=== PATIENT | female | born 1995 | race Caucasian/White ===

== ENCOUNTER 2020-02-12 14:35 | Outpatient (CLI) | payer OTHER, SELFPAY ==
--- NOTE | ~2020-02-12 | XR_ITS ---
EXAMINATION: XR chest 2V DATE: 02/12/2020 15:34 INDICATION: Generalized chest pain. TECHNIQUE: Frontal and lateral views of the chest were obtained. COMPARISON: None. FINDINGS: The chest demonstrates clear lungs without pneumonia, pleural effusion, or pneumothorax. Th e heart size is normal. IMPRESSION: 1. No acute cardiopulmonary disease. Reviewed, dictated and finalized at location A.
[2020-02-12 14:55] LABS: Basophils Absolute Auto 0.05 K/mm3 (0.00-0.10); Basophils Percent Auto 0.9 % (0.0-1.0); Eosinophils Absolute Auto 0.08 K/mm3 (0.02-0.50); Eosinophils Percent Auto 1.4 % (1.0-6.0); Hematocrit 40.8 % (35.0-49.0); Hemoglobin 12.7 g/dL (12.0-15.0); Immature Granulocyte Absolute 0.01 K/mm3 (0.00-0.00); Immature Granulocyte Percent A 0.2 % (0.0-0.0); Lymphocytes Absolute Auto 1.82 K/mm3 (1.10-4.50); Lymphocytes Percent Auto 32.4 % (18.0-42.0); Mean Corpuscular HGB Conc 31.1 g/dL (32.0-36.0); Mean Corpuscular Hemoglobin 24.2 pg (27.0-31.0); Mean Corpuscular Volume 77.9 fL (78.0-102.0); Mean Platelet Volume 10.8 fl (9.2-11.8); Monocytes Absolute Auto 0.36 K/mm3 (0.10-0.90); Monocytes Percent Auto 6.4 % (2.0-11.0); Neutrophils Absolute Auto 3.3 K/mm3 (1.7-7.2); Neutrophils Percent Auto 58.7 % (50.0-70.0); Platelet Count Result 284 K/mm3 (150-420); Red Blood Count 5.24 M/mm3 (4.20-5.40); Red Cell Distribution Width 14.2 % (11.6-14.4); White Blood Count 5.6 K/mm3 (4.8-10.8)
[2020-02-12 15:45] LABS: Anion Gap 14.4 mmol/L (7-16); Blood Urea Nitrogen 10 mg/dL (7-18); Calcium 9.5 mg/dL (8.5-10.1); Carbon Dioxide 26 mmol/L (21-32); Chloride 102 mmol/L (98-108); Estimated Glomerular Filt Rate > 60; Glucose 84 mg/dL (70-99); Osmolality Calculated 284 mOsm/kg (285-295); Potassium 4.4 mmol/L (3.5-5.1); Sodium 138 mmol/L (136-145)
== END 2020-02-12 14:36 | disposition home or self-care (01) ==
LOC: CHSLAB 14:41
PROVIDERS: PCP Family Medicine; Visit Provider Family Medicine
DX: R07.89 Other chest pain (principal); J02.9 Acute pharyngitis, unspecified
CPT/HCPCS: 36415; 71046; 80048; 85025

== ENCOUNTER 2021-06-20 13:51 | Outpatient (CLI) | payer OTHER, SELFPAY ==
--- NOTE | ~2021-06-20 | US_ITS ---
EXAMINATION: US OB <=14 wk fetus w TV DATE: 06/20/2021 14:33 INDICATION: Encounter for supervision of normal during first trimester TECHNIQUE: Real-time pelvic ultrasound utilizing both a transvaginal and transabdominal probe was pe rformed. The interpreting radiologist was not present for the study. COMPARISON: None. FINDINGS: The uterus measures 7.8 x 4.5 x 6.5 cm. Endometrial complex is thickened at the fundus measuring up t o 2.6 cm in thickness. No evident intrauterine fluid or gestational sac. The right ovary measures 3.8 x 2.6 x 2.5 cm. 1.3 cm simple appearing anechoic cyst versus follicle in the right ovary. The left ovary is not visualized. There is a very small amount of simple appearing anechoic free fluid in the pelvis. IMPRESSION: 1. Thickened endometrial complex but without evident intrauterine gestational sac. Differential would include early , failed or nonvisualized ectopic . Recommend follow-up wi th serial beta-hCG levels with repeat imaging as clinically indicated. Reviewed, dictated and finalized at location A. NG MECHANIC IMPRESSION: 1. Thickened endometrial complex but without evident intrauterine gestational s ac. Differential would include early , failed or nonvisualiz ed ectopic . Recommend follow-up with serial beta-hCG levels with repe at imaging as clinically indicated.
== END 2021-06-20 13:52 | disposition home or self-care (01) ==
PROVIDERS: PCP Family Medicine; Visit Provider Family Medicine
DX: R10.2 Pelvic and perineal pain (principal); Z34.90 Encounter for supervision of normal pregnancy, unspecified, unspecified trimester
CPT/HCPCS: 76801; 76817

== ENCOUNTER 2021-06-21 12:56 | Outpatient (CLI) | payer OTHER, SELFPAY ==
[2021-06-21 13:46] LABS: SPREG INTERNAL CONTROL Positive; Serum Qual hCG Positive
== END 2021-06-21 12:57 | disposition home or self-care (01) ==
LOC: CHSLAB 13:02
PROVIDERS: PCP Family Medicine; Visit Provider Family Medicine
DX: Z34.90 Encounter for supervision of normal pregnancy, unspecified, unspecified trimester (principal)
CPT/HCPCS: 36415; 84702; 84703

== ENCOUNTER 2021-06-24 10:52 | Emergency (ER) | payer OTHER, SELFPAY ==
[2021-06-24 11:00] VITALS: BP 142/88; PULSE 102; RESP 16; TEMP 36.8; O2SAT 100
--- NOTE | 2021-06-24 11:07 | ED.NEUROSD ---
HPI - Neuro Symptoms/Deficit General Chief Complaint: Neuro Symptoms/Deficit Stated Complaint: issues Source: patient and RN notes reviewed Mode of arrival: ambulatory Limitations: no limitations History of Present Illness HPI Narrative: patient began having some tingling of the left leg last evening. Then today felt some in her left arm and left leg again. That has since resolved except for 1 area in her left groin. She had an ultrasound 3 days ago for positive test which could not locate products of conception and could not rule out an ectopic . Quantitative beta hCG shows she is approximately 4-5 weeks . She is not having any abdominal pain. She has no other symptoms. She said that she is concerned about having a blood clot because she is . Onset (ago): day(s) (1) Location: left arm and left leg History of same: No Severity: mild Quality: tingling Relieving factors: none Exacerbating factors: none Context: gradual onset On Anticoagulants: No Associated symptoms: denies other symptoms Treatments Prior to Arrival: none Related Data Home Medications Medication Instructions Recorded Confirmed [id number]-FA 1 tablet PO DAILY 06/24/21 06/24/21 [] Allergies Allergy/AdvReac Type Severity Reaction Status Date / Time cephalexin [From Keflex] Allergy Rash Verified 06/24/21 11:33 Review of Systems Review of Systems: All systems reviewed & are unremarkable except as noted in HPI and below Constitutional: Constitutional: Denies body ache(s), Denies chills and Denies headache(s) Neurologic: Reports Normal hearing present, Denies abnormal gait, Denies confusion, Denies dizziness, Denies syncope, Denies headache(s), Denies lack of coordination, Denies loss of vision, Denies memory loss, Denies numbness and Denies disequilibrium PMFSH Past Medical History Medical History (Updated 06/24/21 @ 12:28 by Mason Coreas MD) COVID-19 No active medical problems Surgical History Surgical History (Updated 06/24/21 @ 11:13 by Mason Coreas MD) No pertinent past surgical history Social History Social History (Updated 06/24/21 @ 11:14 by Mason Coreas MD) Smoking status: Never smoker Exam Const: General: cooperative, healthy appearing, comfortable, no acute distress, well developed, alert and awake Nutritional Appearance: average body habitus and well nourished Orientation/consciousness: patient oriented x3 Limitations: no limitations Other: female nurse in room during examination. HENMT: Head: normal to inspection, normocephalic and atraumatic Ears: hearing grossly normal bilaterally and external ears normal Eyes: General: appearance normal, both eyes and all related structures Periorbital: periorbital findings normal Pupils: Equal, round and reactive pupils present EOM: EOMs intact bilaterally Neck: Neck: normal visual inspection, full ROM, trachea midline and supple Resp: Effort & Inspection: normal respiratory effort Auscultation: clear to auscultation bilaterally Cardio: Jugular venous distension: no JVD Rate: regular rate Rhythm: regular rhythm Heart sounds: no murmurs GI: Inspection: normal to inspection Auscultation: normal bowel sounds Back/Spine/Pelvis: Back: no CVA tenderness Cervical Spine: cervical ROM normal Thoracic/Lumbar Spine: thoraco-lumbar ROM normal Skin: General skin exam: normal color, no rashes or lesions noted and turgor normal Rashes: no rashes Neuro: General: patient oriented x3, gait normal, moves all extremities, no meningeal signs and no focal motor deficits Cranial nerves: Yes CN's II-XII intact bilaterally Speech: normal speech Gait exam (Neuro): Normal gait present Motor exam (neuro): 5/5 motor strength present throughout, Pronator motor function not present, No tremor noted and No asterixis Sensory Exam: normal sensation Coordination: [id number]-ax-curb test normal, wsli-vo-ommi test normal, t
[2021-06-24 11:57] LABS: Basophils Absolute Auto 0.03 K/mm3 (0.00-0.10); Basophils Percent Auto 0.5 % (0.0-1.0); Eosinophils Percent Auto 1.6 % (1.0-6.0); Hematocrit 39.9 % (35.0-49.0); Hemoglobin 12.9 g/dL (12.0-15.0); Immature Granulocyte Absolute 0.02 K/mm3 (0.00-0.00); Immature Granulocyte Percent A 0.3 % (0.0-0.0); Lymphocytes Percent Auto 22.2 % (18.0-42.0); Mean Corpuscular HGB Conc 32.3 g/dL (32.0-36.0); Mean Corpuscular Hemoglobin 27.3 pg (27.0-31.0); Mean Corpuscular Volume 84.4 fL (78.0-102.0); Mean Platelet Volume 10.7 fl (9.2-11.8); Monocytes Absolute Auto 0.46 K/mm3 (0.10-0.90); Monocytes Percent Auto 7.3 % (2.0-11.0); Neutrophils Absolute Auto 4.3 K/mm3 (1.7-7.2); Neutrophils Percent Auto 68.1 % (50.0-70.0); Platelet Count Result 234 K/mm3 (150-420); Red Blood Count 4.73 M/mm3 (4.20-5.40); Red Cell Distribution Width 14.4 % (11.6-14.4); White Blood Count 6.3 K/mm3 (4.8-10.8)
[2021-06-24 12:08] LABS: D Dimer 0.35 mg/L (0.19-0.50)
[2021-06-24 12:21] LABS: Alanine Aminotransferase 17 U/L (14-59); Alkaline Phosphatase 66 U/L (46-116); Anion Gap 10 mmol/L (8-16); Aspartate Amino Transferase 10 U/L (15-37); Bilirubin,Total 0.3 mg/dL (0.00-1.00); Blood Urea Nitrogen 14 mg/dL (7-18); Calcium 8.9 mg/dL (8.5-10.1); Carbon Dioxide 24 mmol/L (21-32); Chloride 104 mmol/L (98-108); Estimated CRCL calculation 94 ml/min; Estimated Glomerular Filt Rate > 60; Glucose 93 mg/dL (70-99); Magnesium 2.2 mg/dL (1.8-2.4); Osmolality Calculated 286 mOsm/kg (285-295); Potassium 3.9 mmol/L (3.5-5.1); Sodium 138 mmol/L (136-145); Thyroid Stimulating Hormone 1.67 uIU/mL (0.36-3.74); Total Protein 7.5 g/dL (6.4-8.2)
== END 2021-06-24 12:30 | disposition home or self-care (01) ==
PROVIDERS: Emergency Provider Emergency Medicine; PCP Family Medicine
DX: R20.2 Paresthesia of skin (principal)
CPT/HCPCS: 36415; 80053; 83735; 84443; 85025; 85380; 99282; 99283

== ENCOUNTER 2021-06-27 12:27 | Outpatient (CLI) | payer OTHER, SELFPAY ==
[2021-06-27 13:06] LABS: Serum Qual hCG Positive
[2021-06-27 13:07] LABS: SPREG INTERNAL CONTROL Positive
== END 2021-06-27 12:28 | disposition home or self-care (01) ==
LOC: CHSLAB 12:29
PROVIDERS: PCP Family Medicine; Visit Provider Family Medicine
DX: Z34.90 Encounter for supervision of normal pregnancy, unspecified, unspecified trimester (principal)
CPT/HCPCS: 36415; 84702; 84703

== ENCOUNTER 2021-07-05 10:10 | Outpatient (CLI) | payer OTHER, SELFPAY ==
--- NOTE | ~2021-07-05 | US_ITS ---
EXAMINATION: US OB <= 14 weeks fetus DATE: 07/05/2021 11:11 INDICATION: Establish dating of during first trimester TECHNIQUE: Real-time pelvic ultrasound utilizing both a transvaginal and transabdominal probe was pe rformed. The interpreting radiologist was not present for the study. COMPARISON: 06/20/2021 FINDINGS: The uterus measures 10.2 x 4.8 x 6.1 cm. There is an intrauterine gestational sac. A yolk sac and fe jovani pole are identified. The crown rump length measures 1.8 cm, which correlates with an estimated ge stational age of 6 weeks and 4 days. heart motion is identified measuring 145 beats per minute (bpm) by M-mode Doppler. The right ovary measures 3.0 x 2.9 x 2.7 cm and contains a 2.1 cm hypoechoic likely corpus luteum cys t. The left ovary measures 2.0 x 1.6 x 1.7 cm. Vascular flow with both arterial and venous waveforms identified in both ovaries on color Doppler. There is no free fluid in the pelvis. IMPRESSION: 1. Single living fetus with heart rate of 145 bpm. 2. Gestational age by ultrasound of 6 weeks 4 day(s) +/- 4 day(s) with ultrasound estimated date of delivery (GLENDY) of 02/24/2022. Reviewed, dictated and finalized at location A. OR DIRECTOR INSIGHT IMPRESSION: 1. Single living fetus with heart rate of 145 bpm. 2. Gestational age by ultrasound of 6 weeks 4 day(s) +/- 4 day(s) with ultraso und estimated date of delivery (GLENDY) of 02/24/2022.
== END 2021-07-05 10:11 | disposition home or self-care (01) ==
LOC: CHSIMG 10:11
PROVIDERS: PCP Family Medicine; Visit Provider Family Medicine
DX: Z34.90 Encounter for supervision of normal pregnancy, unspecified, unspecified trimester (principal)
CPT/HCPCS: 76801

== ENCOUNTER 2021-12-14 17:41 | Outpatient (CLI) | payer OTHER, MEDICAID, SELFPAY ==
[2021-12-14] VITALS (9 sets, daily range): BP systolic 136–160; BP diastolic 83–93; PULSE 80–95
[2021-12-14 18:35] LABS: Basophils Absolute Auto 0.1 K/mm3 (0.0-0.1); Basophils Percent Auto 0.4 % (0.2-1.2); Eosinophils Absolute Auto 0.1 K/mm3 (0-0.3); Eosinophils Percent Auto 0.9 % (0-4.4); Hematocrit 30.6 % (37.0-47.0); Hemoglobin 9.7 g/dL (12.0-15.0); Immature Granulocyte Absolute 0.07 K/mm3 (0.00-0.031); Immature Granulocyte Percent A 0.5 % (0-0.5); Lymphocytes Absolute Auto 1.96 K/mm3 (0.9-3.2); Lymphocytes Percent Auto 14.6 % (18.3-44.2); Mean Corpuscular HGB Conc 31.7 g/dl (32-36); Mean Corpuscular Hemoglobin 27.4 pg (26-34); Mean Corpuscular Volume 86.4 fl (80-100); Mean Platelet Volume 11.9 fl (7.4-10.4); Monocytes Absolute Auto 0.9 K/mm3 (0.1-0.6); Monocytes Percent Auto 6.5 % (2.6-8.5); Neutrophils Absolute Auto 10.4 K/mm3 (1.3-6.7); Neutrophils Percent Auto 77.1 % (45.5-73.1); Nucleated Red Blood Cells Perc 0.1 % (0.0-0.2); Platelet Count Result 214 k/mm3 (150-375); Red Blood Count 3.54 M/mm3 (4.2-5.4); Red Cell Distribution Width 13.5 % (11.5-14.5); White Blood Count 13.4 K/mm3 (4.5-10.0)
[2021-12-14] MEDS: LABETALOL HCL 100 MG TABLET 200 MG PO (18:39)
[2021-12-14 18:46] LABS: Alanine Aminotransferase 12 U/L (6-35); Albumin Level 3.8 g/dL (3.5-5.1); Alkaline Phosphatase 142 U/L (38-126); Anion Gap 6 mmol/L (8-16); Aspartate Amino Transferase 23 U/L (14-36); Bilirubin,Total 0.1 mg/dL (0.2-1.3); Blood Urea Nitrogen 9 mg/dL (7-17); Calcium 8.9 mg/dL (8.4-10.2); Carbon Dioxide 21 mmol/L (22-30); Chloride 107 mmol/L (98-107); Estimated Glomerular Filt Rate > 60; Glucose 86 mg/dL (65-110); Potassium 3.5 mmol/L (3.4-5.0); Sodium 134 mmol/L (137-145); Uric Acid 3.6 mg/dL (2.5-7.5)
[2021-12-14 18:52] LABS: Appearance Urine Clear (Clear); Bilirubin Urine Negative (Negative); Blood Urine Trace-lysed (Negative); Color Urine Yellow (Yellow); Glucose Urine UA Negative (Negative); Ketones Urine Negative (Negative); Leukocyte Esterase Ur Negative LEU/UL (NEGATIVE); Nitrate Urine Negative (Negative); Protein Urine Negative (Negative); Urobilinogen Urine 0.2 mg/dL (<2.0)
[2021-12-14 18:57] LABS: Add Urine Microscopic? YES; Bacteria Urine Trace /hpf; RBC Urine 0-2 /hpf (0-2); Squamous Epithelial Cell Urine Moderate /hpf (Few); WBC Urine 0-3 /hpf (0-3)
[2021-12-14 19:17] LABS: Creatinine Urine 29.1 mg/dL; Total Protein Urine Random 17 mg/dL; Ur Ttl Prot Creatinine Ratio 0.58 mg/mg (0-0.20)
--- NOTE | 2021-12-14 19:30 | PC.NURSE ---
Called Kimmie Smyth CNMW- labs reviewed. BP's reviewed. order received. will monitor x 30 more minutes call with BP readings. send pt home with 24 urine collection supplies with instructions to bring back after collection. Rx for Labetalol 200mg BID #15 to be sent to pharmacy. pt to f/u in office this sundayDecember 16.
--- NOTE | 2021-12-14 20:02 | PC.NURSE ---
called Kimmie ARMSTRONGLuiza - tiffanieiwed BP's. order received to d/c pt home with instructions to f/u in office 12/16/2021.
== END 2021-12-14 20:15 | disposition home or self-care (01) ==
LOC: ANHOBOP 17:49 → ANHOBPP 17:50
PROVIDERS: PCP Family Medicine; Visit Provider Advanced Practice Midwife
DX: O13.3 Gestational [pregnancy-induced] hypertension without significant proteinuria, third trimester (principal); Z3A.29 29 weeks gestation of pregnancy; Z51.81 Encounter for therapeutic drug level monitoring; Z79.899 Other long term (current) drug therapy
CPT/HCPCS: 36415; 59025; 80053; 81001; 82570; 84156; 84550; 85025; 87086; 99199; A9270

== ENCOUNTER 2021-12-15 19:30 | Outpatient (NON) | payer OTHER, MEDICAID, SELFPAY ==
[2021-12-15 20:22] VITALS: BMI 26.6
[2021-12-15 20:43] LABS: Collection Time Urine 24 HOURS
[2021-12-15 20:48] LABS: Patient Weight 155 Lbs; Total Volume 24 Hour Urine 1900 ml
[2021-12-15 21:00] LABS: Creatinine Clearance Urine 161.5 ml/min (75-125); Creatinine Urine 61.9 mg/dL; Total Protein Urine 24 Hr 323 mg/24hr (28-141); Total Protein Urine Random 17 mg/dL
== END 2021-12-15 19:31 | disposition home or self-care (01) ==
LOC: ANHLAB 12-16 08:06
PROVIDERS: PCP Family Medicine; Visit Provider Advanced Practice Midwife
DX: I10 Essential (primary) hypertension (principal)
CPT/HCPCS: 81050; 82575; 84156

== ENCOUNTER 2021-12-26 17:28 | Outpatient (CLI) | payer OTHER, MEDICAID, SELFPAY ==
[2021-12-26] VITALS (10 sets, daily range): BP systolic 145–165; BP diastolic 85–101; PULSE 78–84
[2021-12-26] MEDS: NIFEdipine 30 MG TAB.ER.24 PO (18:04)
[2021-12-26] MEDS: BETAMETHASONE SOD PHOS/ACETATE 30 MG/5 ML VIAL 12 MG IM (18:07)
[2021-12-26 18:09] LABS: Basophils Percent Auto 0.4 % (0.2-1.2); Eosinophils Absolute Auto 0.1 K/mm3 (0-0.3); Eosinophils Percent Auto 1.2 % (0-4.4); Hemoglobin 9.9 g/dL (12.0-15.0); Immature Granulocyte Absolute 0.08 K/mm3 (0.00-0.031); Immature Granulocyte Percent A 0.7 % (0-0.5); Lymphocytes Absolute Auto 1.66 K/mm3 (0.9-3.2); Lymphocytes Percent Auto 15.5 % (18.3-44.2); Mean Corpuscular HGB Conc 31.9 g/dl (32-36); Mean Corpuscular Hemoglobin 27.1 pg (26-34); Mean Corpuscular Volume 84.9 fl (80-100); Mean Platelet Volume 11.4 fl (7.4-10.4); Monocytes Absolute Auto 0.7 K/mm3 (0.1-0.6); Monocytes Percent Auto 6.1 % (2.6-8.5); Neutrophils Absolute Auto 8.2 K/mm3 (1.3-6.7); Neutrophils Percent Auto 76.1 % (45.5-73.1); Platelet Count Result 240 k/mm3 (150-375); Red Blood Count 3.65 M/mm3 (4.2-5.4); Red Cell Distribution Width 15.8 % (11.5-14.5); White Blood Count 10.7 K/mm3 (4.5-10.0)
[2021-12-26 18:19] LABS: Alanine Aminotransferase 13 U/L (6-35); Albumin Level 3.5 g/dL (3.5-5.1); Alkaline Phosphatase 165 U/L (38-126); Anion Gap 5 mmol/L (8-16); Aspartate Amino Transferase 22 U/L (14-36); Bilirubin,Total < 0.1 mg/dL (0.2-1.3); Blood Urea Nitrogen 9 mg/dL (7-17); Calcium 8.7 mg/dL (8.4-10.2); Carbon Dioxide 21 mmol/L (22-30); Chloride 110 mmol/L (98-107); Estimated Glomerular Filt Rate > 60; Glucose 102 mg/dL (65-110); Potassium 3.7 mmol/L (3.4-5.0); Sodium 136 mmol/L (137-145); Uric Acid 4.7 mg/dL (2.5-7.5)
[2021-12-26 18:23] LABS: Creatinine Urine 34.8 mg/dL; Total Protein Urine Random 15 mg/dL; Ur Ttl Prot Creatinine Ratio 0.43 mg/mg (0-0.20)
[2021-12-26 18:32] LABS: Appearance Urine Clear (Clear); Bilirubin Urine Negative (Negative); Blood Urine Negative (Negative); Color Urine Yellow (Yellow); Glucose Urine UA Negative (Negative); Ketones Urine Negative (Negative); Leukocyte Esterase Ur Negative LEU/UL (NEGATIVE); Nitrate Urine Negative (Negative); Protein Urine Negative (Negative); Specific Grav Ur 1.015 (1.001-1.035); Urobilinogen Urine 0.2 mg/dL (<2.0)
[2021-12-26 18:33] LABS: Add Urine Microscopic? NO
--- NOTE | 2021-12-26 20:18 | PC.NURSE ---
1999- called Dr. Renae- labs reviewed, BP's reviewed, FHT reviewed. order received to D/C pt home on modified bedrest. pt to call office in AM to get Rx for procardia XL and to get letter for work. pt to return to L&D 12/27/21 for second celestone shot. pt agrees with plan. HTN handout given to pt.
== END 2021-12-26 20:18 | disposition home or self-care (01) ==
LOC: ANHOBOP 17:35 → ANHOBPP 01-03 06:15
PROVIDERS: PCP Family Medicine; Visit Provider Obstetrics & Gynecology
DX: O13.9 Gestational [pregnancy-induced] hypertension without significant proteinuria, unspecified trimester (principal); Z3A.00 Weeks of gestation of pregnancy not specified
CPT/HCPCS: 36415; 59025; 80053; 81003; 82570; 84156; 84550; 85025; 87086; 96372; 99199; A9270; J0702

== ENCOUNTER 2021-12-27 17:55 | Outpatient (CLI) | payer OTHER, MEDICAID, SELFPAY ==
[2021-12-27] MEDS: BETAMETHASONE SOD PHOS/ACETATE 30 MG/5 ML VIAL 12 MG IM (18:06)
== END 2021-12-27 17:56 | disposition home or self-care (01) ==
PROVIDERS: PCP Family Medicine; Visit Provider Obstetrics & Gynecology
DX: Z36.84 Encounter for antenatal screening for fetal lung maturity (principal)
CPT/HCPCS: 96372; J0702

== ENCOUNTER 2022-01-30 16:54 | Inpatient (IN) | payer MEDICAID, SELFPAY ==
[2022-01-30] VITALS (57 sets, daily range): BP systolic 130–159; BP diastolic 82–104; PULSE 72–97; RESP 18; TEMP 36.3–36.8; O2SAT 99–100; BMI 28.0
--- NOTE | 2022-01-30 17:51 | LDADM ---
This patient, Anali Rouse, was admitted to Labor/Delivery/Recovery 109 on 01/30/22 at 16:54. Plans for labor, pain management and were discussed with patient. Patient/family oriented to hospital policies and general routines including ID bracelet, bed and alarms, visiting hours, pain management, procedures, bathroom and other care routines, personal items, smoking policy, room service/diet and guest tray routines, security routines, and visiting hours. Patient/Family are encouraged to report perceived risks to care and to ask questions if they do not understand what they are told or what they should do. See OBIX for further documentation.
[2022-01-30 17:54] LABS: Basophils Percent Auto 0.4 % (0.2-1.2); Eosinophils Absolute Auto 0.1 K/mm3 (0-0.3); Eosinophils Percent Auto 0.8 % (0-4.4); Hematocrit 33.9 % (37.0-47.0); Hemoglobin 11.2 g/dL (12.0-15.0); Immature Granulocyte Absolute 0.08 K/mm3 (0.00-0.031); Immature Granulocyte Percent A 0.7 % (0-0.5); Lymphocytes Absolute Auto 1.62 K/mm3 (0.9-3.2); Mean Corpuscular Hemoglobin 28.5 pg (26-34); Mean Corpuscular Volume 86.3 fl (80-100); Mean Platelet Volume 12.1 fl (7.4-10.4); Monocytes Absolute Auto 0.6 K/mm3 (0.1-0.6); Monocytes Percent Auto 5.6 % (2.6-8.5); Neutrophils Absolute Auto 8.4 K/mm3 (1.3-6.7); Neutrophils Percent Auto 77.5 % (45.5-73.1); Platelet Count Result 209 k/mm3 (150-375); Red Blood Count 3.93 M/mm3 (4.2-5.4); Red Cell Distribution Width 17.9 % (11.5-14.5); White Blood Count 10.8 K/mm3 (4.5-10.0)
[2022-01-30 18:05] LABS: Alanine Aminotransferase 16 U/L (6-35); Albumin Level 3.8 g/dL (3.5-5.1); Alkaline Phosphatase 215 U/L (38-126); Anion Gap 8 mmol/L (8-16); Aspartate Amino Transferase 34 U/L (14-36); Bilirubin,Total 0.2 mg/dL (0.2-1.3); Blood Urea Nitrogen 13 mg/dL (7-17); Calcium 8.9 mg/dL (8.4-10.2); Carbon Dioxide 18 mmol/L (22-30); Chloride 108 mmol/L (98-107); Estimated CRCL calculation 121 ml/min; Estimated Glomerular Filt Rate > 60; Glucose 106 mg/dL (65-110); Potassium 3.9 mmol/L (3.4-5.0); Sodium 134 mmol/L (137-145)
[2022-01-30 18:07] LABS: Uric Acid 6.1 mg/dL (2.5-7.5)
[2022-01-30] MEDS: DINOPROSTONE 10 MG VAG INSERT VAGINAL (18:22)
[2022-01-30 18:57] LABS: Creatinine Urine 41.3 mg/dL; Total Protein Urine Random 20 mg/dL; Ur Ttl Prot Creatinine Ratio 0.48 mg/mg (0-0.20)
--- NOTE | 2022-01-30 19:10 | WPDANESEPP ---
Anes - Eval Pre Procedure Procedure: labor Epidural Date/Time: 01/30/22 19:10 Surgeon: anastasia Pre Op Diagnosis: MIL Patient Data Age: 26 Gender: F Height: 1.63 m Weight: 74 kg Last Vital Signs Temp 36.8 C 01/30/22 18:30 Pulse 80 01/30/22 19:00 BP 138/91 H 01/30/22 19:00 O2 Del Method Room Air 01/30/22 17:50 Allergies Allergy/AdvReac Type Severity Reaction Status Date / Time cephalexin [From Keflex] Allergy Rash Verified 01/30/22 18:00 Home Medications Medication Instructions Recorded Confirmed Type vit no.133-ferrous 1 tablet PO DAILY 06/24/21 01/30/22 History fumarate 28 mg-folic acid 800 mcg tablet () labetalol 200 mg tablet 300 mg PO Q12H HTN 12/26/21 01/30/22 History aspirin 81 mg tablet,delayed 81 mg PO DAILY 01/24/22 01/30/22 History release (Negrita Low Dose Aspirin) docusate sodium 100 mg capsule 100 mg PO DAILY 01/24/22 01/30/22 History (Colace) ferrous sulfate 200 mg (40 mg 200 mg PO DAILY 01/24/22 01/30/22 History iron) tablet nifedipine 30 mg tablet,extended 30 mg PO DAILY 01/24/22 01/30/22 History release 24 hr (Procardia XL) Laboratory Tests 01/30/22 01/30/22 01/30/22 17:44 17:44 17:44 WBC 10.8 K/mm3 H K/mm3 (4.5-10.0) RBC 3.93 M/mm3 L M/mm3 (4.2-5.4) Hgb 11.2 g/dL L g/dL (12.0-15.0) Hct 33.9 % L % (37.0-47.0) MCV 86.3 fl fl (80-100) MCH 28.5 pg pg (26-34) MCHC 33.0 g/dl g/dl (32-36) RDW 17.9 % H % (11.5-14.5) Plt Count 209 k/mm3 k/mm3 (150-375) MPV 12.1 fl H fl (7.4-10.4) Immature Gran % (Auto) 0.7 % H % (0-0.5) Neut % (Auto) 77.5 % H % (45.5-73.1) Lymph % (Auto) 15.0 % L % (18.3-44.2) Kingfisher % (Auto) 5.6 % % (2.6-8.5) Eos % (Auto) 0.8 % % (0-4.4) Baso % (Auto) 0.4 % % (0.2-1.2) Lymph # (Auto) 1.62 K/mm3 K/mm3 (0.9-3.2) [place]isher # (Auto) 0.6 K/mm3 K/mm3 (0.1-0.6) Eos # (Auto) 0.1 K/mm3 K/mm3 (0-0.3) Baso # (Auto) 0.0 K/mm3 K/mm3 (0.0-0.1) Abs Immat Gran (auto) 0.08 K/mm3 H K/mm3 (0.00-0.031) Absolute Neuts (auto) 8.4 K/mm3 H K/mm3 (1.3-6.7) Absolute Nucleated RBC 0.0 K/mm3 K/mm3 (0.0-0.012) Nucleated RBC % 0.0 % % (0.0-0.2) Sodium Potassium Chloride Carbon Dioxide Anion Gap BUN Creatinine Estim Creat Clear Calc Estimated GFR Glucose Uric Acid 6.1 mg/dL mg/dL (2.5-7.5) Calcium Total Bilirubin AST ALT Alkaline Phosphatase Total Protein Albumin U Random Total Protein Urine Creatinine Protein/Creat Ratio 2 RPR Pending 01/30/22 01/30/22 17:44 18:38 WBC RBC Hgb Hct MCV MCH MCHC RDW Plt Count MPV Immature Gran % (Auto) Neut % (Auto) Lymph % (Auto) Kingfisher % (Auto) Eos % (Auto) Baso % (Auto) Lymph # (Auto) Kingfisher # (Auto) Eos # (Auto) Baso # (Auto) Abs Immat Gran (auto) Absolute Neuts (auto) Absolute Nucleated RBC Nucleated RBC % Sodium 134 mmol/L L mmol/L (137-145) Potassium 3.9 mmol/L mmol/L (3.4-5.0) Chloride 108 mmol/L H mmol/L (98-107) Carbon Dioxide 18 mmol/L L mmol/L (22-30) Anion Gap 8 mmol/L mmol/L (8-16) BUN 13 mg/dL mg/dL (7-17) Creatinine 0.60 mg/dL L mg/dL (0.7-1.0) Estim Creat Clear Calc 121 ml/min ml/min Estimated GFR > 60 (59 - ) Glucose 106 mg/dL mg/dL (65-110) Ur
[2022-01-30] MEDS: NIFEdipine 30 MG TAB.ER.24 PO (20:23)
[2022-01-30] MEDS: LABETALOL HCL 100 MG TABLET 300 MG PO (20:23)
[2022-01-30] MEDS: LACTATED RINGERS 1,000 ML 75 ML IV CONT (22:04)
[2022-01-30] MEDS: MAGNESIUM SULF 4 GM/WATER100ML 4 GM/100 ML BAG IVPB (22:06)
[2022-01-30] MEDS: MAGNESIUM SULF 20GM/WATER500ML 500 ML 50 MG IV CONT (22:35)
[2022-01-31] VITALS (367 sets, daily range): BP systolic 110–152; BP diastolic 67–102; PULSE 69–108; RESP 18; TEMP 36.1–36.6; O2SAT 93–100
--- NOTE | 2022-01-31 06:37 | PM.IMHP ---
H&P: HPI History of Present Illness Date/Time: 01/31/22 06:37 Chief Complaint: induction of labor Narrative: Anali is a 26yo at 37.0 today who was sent over for IOL one day early for cHTN with superimposed preE. BPs in office yesterday 155/108 and 160/100, had some severe pressures last night as well. Magnesium and cervidil overnight. otherwise uncomplicated. Review of Systems Review of Systems: All systems reviewed & are unremarkable except as noted in HPI and below PMFSH Past Medical History Medical History COVID-19 No active medical problems Surgical History Surgical History No pertinent past surgical history Family History Family History Other No pertinent family history Social History Social History Smoking status: Never smoker Substance use: never Spiritual care concerns: No Meds Home Medications and Allergies Home Medications Medication Instructions Recorded Confirmed Type vit no.133-ferrous 1 tablet PO DAILY 06/24/21 01/30/22 History fumarate 28 mg-folic acid 800 mcg tablet () labetalol 200 mg tablet 300 mg PO Q12H HTN 12/26/21 01/30/22 History aspirin 81 mg tablet,delayed 81 mg PO DAILY 01/24/22 01/30/22 History release (Negrita Low Dose Aspirin) docusate sodium 100 mg capsule 100 mg PO DAILY 01/24/22 01/30/22 History (Colace) ferrous sulfate 200 mg (40 mg 200 mg PO DAILY 01/24/22 01/30/22 History iron) tablet nifedipine 30 mg tablet,extended 30 mg PO DAILY 01/24/22 01/30/22 History release 24 hr (Procardia XL) Allergies Allergy/AdvReac Type Severity Reaction Status Date / Time cephalexin [From Keflex] Allergy Rash Verified 01/30/22 18:00 Vital Signs Vital Signs - 24 hr 01/30/22 17:36 01/30/22 17:45 01/30/22 18:00 Temperature 97.3 F L Pulse Rate 96 97 88 Respiratory Rate Blood Pressure 147/104 H 149/98 H 151/96 H Pulse Oximetry Oxygen Delivery 01/30/22 18:31 01/30/22 18:30 01/30/22 18:45 Temperature 98.3 F Pulse Rate 78 79 Respiratory Rate Blood Pressure 153/98 H 138/92 H Pulse Oximetry Oxygen Delivery 01/30/22 19:00 01/30/22 19:15 01/30/22 19:30 Temperature Pulse Rate 80 79 75 Respiratory Rate Blood Pressure 138/91 H 147/94 H 145/90 H Pulse Oximetry Oxygen Delivery 01/30/22 19:45 01/30/22 20:00 01/30/22 20:15 Temperature Pulse Rate 90 88 91 Respiratory Rate Blood Pressure 148/92 H 146/92 H Pulse Oximetry Oxygen Delivery 01/30/22 20:30 01/30/22 20:45 01/30/22 21:00 Temperature Pulse Rate 81 89 91 Respiratory Rate Blood Pressure 149/104 H 142/100 H 159/104 H Pulse Oximetry Oxygen Delivery 01/30/22 21:15 01/30/22 21:30 01/30/22 21:45 Temperature Pulse Rate 81 84 85 Respiratory Rate Blood Pressure 155/93 H 132/85 147/91 H Pulse Oximetry Oxygen Delivery 01/30/22 22:00 01/30/22 22:10 01/30/22 22:11 Temperature 97.5 F L Pulse Rate 72 81 83 Respiratory Rate Blood Pressure 137/89 130/97 H 135/88 Pulse Oximetry Oxygen Delivery 01/30/22 22:15 01/30/22 22:19 01/30/22 22:20 Temperature Pulse Rate 86 82 Respiratory Rate Blood Pressure 130/82 132/83 Pulse Oximetry 100 Oxygen Delivery 01/30/22 22:24 01/30/22 22:25 01/30/22 22:29 Temperature Pulse Rate 89 Respiratory Rate Blood Pressure 131/89 Pulse Oximetry 100 100 Oxygen Delivery 01/30/22 22:30 01/30/22 22:34 01/30/22 22:35 Temperature Pulse Rate 83 84 Respiratory Rate Blood Pressure 136/83 130/87 Pulse Oximetry 99 Oxygen Delivery 01/30/22 22:39 01/30/22 22:40 01/30/22 22:44 Temperature Pulse Rate 85 Respiratory Rate Blood Pressu
[2022-01-31] MEDS: miSOPROStol 50 MCG TABLET VAGINAL (07:42)
[2022-01-31 08:23] LABS: Rapid Plasma Reagin Non-Reactive (NonReactive)
[2022-01-31] MEDS: LABETALOL HCL 100 MG TABLET 300 MG PO ×2 (08:38→20:34)
[2022-01-31] MEDS: MAGNESIUM SULF 20GM/WATER500ML 500 ML 50 MG IV CONT (08:39)
[2022-01-31] MEDS: LACTATED RINGERS 1,000 ML 75 ML IV CONT (11:07)
[2022-01-31] MEDS: OXYTOCIN 30 UNITS/NS 500 ML 30 UNITS/500 ML BAG 6 UNITS IV CONT (12:10)
[2022-01-31 13:34] LABS: Magnesium 6.9 mg/dL (1.6-2.3)
--- NOTE | 2022-01-31 18:07 | PM.OBPNLAB ---
Pain Control Date/time seen: 01/31/22 18:07 Pain control: tolerating well Comments: Feels terrible on magnesium. Pelvic Exam Dilation (cm): 1 Effacement (%): 20 station: -4 Comments: ballotable Contractions Contraction pattern: Irregular Contraction intensity: Mild Status status: Category ll Comments: minimal to moderate variability, has had intermittent periods of late decelerations that resolved with position changes. Assessment and Plan Comments: We discussed in depth her complicated situation. Despite cervical ripening x2 and pitocin is not making any progress. Unable to AROM, presenting part very high. Also not able to increase pitocin much with FHT as they are. Continuing induction will likely result in either at least another 24 hours of labor/induction, or in a CS for intolerance of labor. She is also very symptomatic on magnesium (mag level normal, just turned down to 1.5gm/hr). Offered continued induction or delivery now. Pt to discuss with her mom and and decide.
[2022-01-31] MEDS: MAGNESIUM SULF 20GM/WATER500ML 500 ML 37.5 MG IV CONT (18:57)
[2022-01-31] MEDS: NIFEdipine 30 MG TAB.ER.24 PO (20:00)
[2022-01-31] MEDS: ONDANSETRON INJ 4 MG/2 ML VIAL IV PUSH (22:07)
[2022-02-01] VITALS (185 sets, daily range): BP systolic 93–146; BP diastolic 51–107; PULSE 65–118; RESP 14–18; TEMP 36.2–37.1; O2SAT 81–100
[2022-02-01] MEDS: LACTATED RINGERS 1,000 ML 75 ML IV CONT ×3 (00:09→12:10)
[2022-02-01] MEDS: PHENYLEPHRINE 1,000 MCG/10 ML SYRINGE 100 MCG IV PUSH (02:38)
[2022-02-01] MEDS: FAMOTIDINE 20 MG/2 ML VIAL IV PUSH (05:31)
[2022-02-01] MEDS: DEXTROSE 5%/LACTATED RINGERS 1,000 ML 999 ML IV CONT (07:08)
[2022-02-01] MEDS: OXYTOCIN 30 UNITS/NS 500 ML 30 UNITS/500 ML BAG 125 UNITS IV CONT (08:15)
[2022-02-01] MEDS: LABETALOL HCL 100 MG TABLET 300 MG PO ×2 (08:44→20:43)
[2022-02-01] MEDS: ONDANSETRON INJ 4 MG/2 ML VIAL IV PUSH (10:02)
--- NOTE | 2022-02-01 10:09 | PM.OBPRVD ---
OB - Delivery Note Procedure Delivery date: 02/01/22 Procedure: Events: Chronic Hypertension and Preeclampsia w severe features Induction method: AROM, Per Misoprostol Protocol, Per Pitocin Protocol and Per Cervidil Protocol Delivery monitor: External FHT and Internal Uterine Laceration Description: Perineal - 2nd Degree Delivery repair: vicryl Specimen: Yes Quantitative Blood Loss (ml): 410 Anesthesia type: Epidural Disposition: Floor Narrative: With adequate expulsive efforts by the mother, the baby's head was delivered OA. The baby's anterior shoulder was delivered under the pubic symphysis without difficulty. The posterior shoulder and the rest of the baby delivered without difficulty. The was placed on the mothers chest and suctioned and stimulated. The cord was clamped and cut after 30 seconds. Mother and baby both stable. Baby Date of : 02/01/22 Time of : 07:32 Weeks of gestation at delivery: 37 gender: Female Weight (pounds): 5 Weight (ounces): 13 presentation: vertex Placenta delivery description: Spontaneous Cord Vessel Description: 3 Vessels and Delayed Cord Clamping score one minute: 4 score five minutes: 6 score ten minutes: 9
[2022-02-01] MEDS: MAGNESIUM SULF 20GM/WATER500ML 500 ML 37.5 MG IV CONT (10:17)
[2022-02-01] MEDS: IBUPROFEN 600 MG TABLET PO ×2 (12:27→20:12)
[2022-02-01] MEDS: BENZOCAINE 20% AER SPR (*SP) 56 GM CAN 1 SPRAY TOPICAL (12:47)
[2022-02-01] MEDS: WITCH HAZEL 40 PADS 1 PAD TOPICAL (12:47)
--- NOTE | 2022-02-01 12:56 | PC.NURSE ---
Pt up with assist to bedside commode. Unable to void at this time.
--- NOTE | 2022-02-01 12:56 | PC.NURSE ---
Pericare was performed ice pack and peripads applied.
--- NOTE | 2022-02-01 14:17 | PC.NURSE ---
Pt up with assist to bedside commode, void 300 mL. Pericare was performed.
--- NOTE | 2022-02-01 15:39 | OBPPTRN ---
Patient transferred to post room # 282 via wheelchair accompanied by fob and Support person present and also a recipient of instructions. PT received instructions this shift via one to one discussion, mom baby care guide and demonstrations. NO barriers to learning identified at this time. PT Oriented to unit, room, information board, rooming in, admission packet and security measures. Patient verbalizes understanding.
[2022-02-01] MEDS: NIFEdipine 30 MG TAB.ER.24 PO (20:13)
[2022-02-02] MEDS: LACTATED RINGERS 1,000 ML 75 ML IV CONT (01:42)
[2022-02-02 05:20] VITALS: BP 113/68; PULSE 81; RESP 16; TEMP 36.8; O2SAT 100
[2022-02-02 06:08] LABS: Hematocrit 27.1 % (37.0-47.0); Hemoglobin 8.5 g/dL (12.0-15.0)
[2022-02-02] MEDS: IBUPROFEN 600 MG TABLET PO ×2 (06:15→17:45)
[2022-02-02 07:34] VITALS: BP 138/88; PULSE 80; RESP 18; TEMP 36.6; O2SAT 99
[2022-02-02] MEDS: POLYSACCHARIDE IRON COMPLEX 150 MG CAPSULE PO ×3 (07:45→17:46)
--- NOTE | 2022-02-02 08:13 | P.PNOB_ITS ---
OB - PN: Subj Subjective Date/time seen: 02/02/22 08:13 magnesium sulfate off, pt feeling well, will monitor bp's s/p delivery for preeclampsia OB - PN: Obj Data Labs CBC & Chem 7: 02/02/22 05:47 01/30/22 17:44 Labs: Laboratory Results - last 24 hr 02/02/22 05:47 Hgb 8.5 L Hct 27.1 L OB - PN A/P Plan day: 1 Time Spent With Patient Time: Total time spent is greater than 50% in coordination of care (as documented) at patient's floor/unit and/or counseling patient: Review of Systems 2 Review of Systems: All systems reviewed & are unremarkable except as noted in HPI and below Exam Const: General: cooperative, healthy appearing and comfortable
--- NOTE | 2022-02-02 09:58 | WPDANLDPN2 ---
Anes-Prog Note L&D Date/Time: 02/02/22 09:58 Comfortable throughout: labor and delivery Neuraxial method: epidural Epidural/Spinal procedure site: clean & non-tender Neuro status: Neuro function grossly intact. Vital Signs: Last Vital Signs Temp 36.8 C 02/02/22 05:20 Pulse 81 02/02/22 05:20 Resp 16 02/02/22 05:20 BP 113/68 02/02/22 05:20 Pulse Ox 100 02/02/22 05:20 O2 Del Method Room Air 02/01/22 20:25 Pain score (VAS): 2 I/O: Intake & Output 02/01/22 02/02/22 02/02/22 23:59 07:59 15:59 Intake Total 200 1000 Output Total 900 600 Balance -700 400 Patient feedback: Patient satisfied with anesthetic care.
[2022-02-02] MEDS: MULTIVIT/MIN/PREN/FOL AC/IRON TABLET 1 TAB PO (10:33)
[2022-02-02] MEDS: LABETALOL HCL 100 MG TABLET 300 MG PO ×2 (10:33→21:23)
[2022-02-02] MEDS: DOCUSATE SODIUM 100 MG CAPSULE PO ×2 (10:33→17:46)
[2022-02-02] MEDS: ACETAMINOPHEN 325 MG TABLET 650 MG PO ×2 (10:34→17:44)
[2022-02-02 12:13] VITALS: BP 129/81; PULSE 88; RESP 16; TEMP 37.1; O2SAT 99
--- NOTE | 2022-02-02 16:14 | PC.NURSE ---
[id number] Mother is eating breakfast. was stimulated with touch, talking, and unwrapping and placed on father's chest for stimulating to eat. Mother voiced she will call after eating, placing infant skin to skin after feeding cues are seen or if doesn't wake to breastfeed. [id number] Consulted with patient to assess needs related to . Mother led conversation with her experience with feeding baby so far. Mother works well with her with encouragement. Reviewed working with , breast, nipples and how to protect the nipples with an optimal deep latch, good positioning, and good hand washing. Encouraged understanding the benefits of skin to skin, responding to feeding cues, frequencies of feeding 8-12 times in 24 hours (approximately 2-3 hours), duration of feedings, milk production, intake/output feeding sheet and signs of adequate intake encouraging swallowing at the breast. Reviewed positioning and alignment, supporting breast, off-centered (asymmetrical latch) and leading with the chin with big open wide gape. Infant latched optimally to the left breast in cross cradle position. Education given to mother of how to visualize suck/swallow ratios and drinking at the breast. Infant was able to maintain latch without discomfort to mother. Nipple care reviewed with optimal latch and good positioning. Resources used to facilitate learning were used from the visual handout/ tool/mom and baby guide. Mother voiced understanding of the education shared, calling for assistance if the does not latch or if there is discomfort with . Reported to the primary RN. [id number] Mother called RN to the room to assess 's latch to the right breast due to slight excoriation related to a poor feeding earlier in the life of the . Infant was independently latched optimally to the right breast by mother. Mother voiced understanding of how to visualize and hear swallowing at the breast and was encouraged. Mother voiced understanding of the education shared, calling for assistance if the does not latch or if there is discomfort with . Reported to the primary RN.
[2022-02-02 17:30] VITALS: BP 130/78; PULSE 85; RESP 16; TEMP 36.6; O2SAT 100
[2022-02-02] MEDS: NIFEdipine 30 MG TAB.ER.24 PO (17:46)
--- NOTE | 2022-02-02 18:56 | PC.NURSE ---
Addendum entered by Sheldon Pollock RN 02/02/22 18:58: Actual note written at 0700 02/02/22 Original Note: PT introductions made and plan of care discussed per post , pain management, breast feeding, daily care activities, PIH symptoms. PT and spouse both recipients of such instructions and no barriers to learning identified at this time. PT received instructions this shift via one to one discussion, mom baby care guide and any demonstrations. PT verbalized understanding of such care.
[2022-02-02 19:30] VITALS: BP 124/75; PULSE 83; RESP 16; TEMP 36.9
[2022-02-02 22:30] VITALS: BP 130/76; PULSE 80; RESP 16; TEMP 37
[2022-02-03] MEDS: IBUPROFEN 600 MG TABLET PO ×2 (02:30→10:32)
[2022-02-03 04:30] VITALS: BP 130/76; PULSE 75; RESP 16; TEMP 36.8
--- NOTE | 2022-02-03 07:51 | PM.OBPNVD ---
OB - PN: Subj Subjective Date/time seen: 02/03/22 07:51 pp vaginal delivery day 2 OB - PN: Obj Data Labs CBC & Chem 7: 02/02/22 05:47 01/30/22 17:44 OB - PN A/P Plan day: 2 Plan: routine care and discharge home Time Spent With Patient Time: Total time spent is greater than 50% in coordination of care (as documented) at patient's floor/unit and/or counseling patient: Review of Systems Review of Systems: All systems reviewed & are unremarkable except as noted in HPI and below Exam Const: General: cooperative, healthy appearing and comfortable
--- NOTE | 2022-02-03 07:56 | PM.OBDSVD ---
DS: Admitting Diagnosis Discharge Date 02/03/22 Admitting Diagnosis preeclampsia OB - DS: Summary OB Procedures : PIH Mgmt OB Procedures Intrapartum: Spontaneous Vag Delivery OB Procedures: : Transfusion Time Spent with Patient Time attestation: Total time spent providing and/or coordinating discharge services: DS: Data Data Completed and Pending Pending studies at discharge: Pending at discharge 02/01/22 07:47 Surgical [PTH] Routine Discharge Plan Discharge Attending physician on discharge: Annemarie Felipe Discharging Clinician: Padmini Smyth Patient Disposition: Home, Self-Care Activity: pelvic rest Diet: regular Patient Instructions: Antibiotic Form Stand Alone Forms: General Discharge Information Follow-up/Referrals: Sofya Renae MD [Physician] - 4 Weeks Discharge Medications: New ibuprofen 600 mg Tablet 600 mg PO Q6H PRN (Reason: Cramping) Qty: 30 0RF polysaccharide iron complex 150 mg iron Capsule 150 mg PO BIDWM Qty: 60 0RF Continued 28-800 mg-mcg Tablet 1 tablet PO DAILY labetalol 200 mg tablet 300 mg PO Q12H ferrous sulfate 200 mg (40 mg iron) Tablet 200 mg PO DAILY docusate sodium [Colace] 100 mg Capsule 100 mg PO DAILY Discontinued nifedipine [Procardia XL] 30 mg Tablet Extended Release 24hr 30 mg PO DAILY aspirin [Negrita Low Dose Aspirin] 81 mg Tablet,Delayed Release (Dr/Ec) 81 mg PO DAILY Date of admission: 01/30/22 16:54 Primary Care Provider: Duke Tellez Admitting Provider: Sofya Renae Attending physician on admission: Sofya Renae Condition: Stable
[2022-02-03 08:00] VITALS: PULSE 83; RESP 18; O2SAT 100
[2022-02-03 08:55] VITALS: BP 135/75; PULSE 83; RESP 18; TEMP 36.8; O2SAT 100
[2022-02-03 10:31] VITALS: PULSE 83
[2022-02-03] MEDS: POLYSACCHARIDE IRON COMPLEX 150 MG CAPSULE PO (10:31)
[2022-02-03] MEDS: LABETALOL HCL 100 MG TABLET 300 MG (10:31)
[2022-02-03] MEDS: MULTIVIT/MIN/PREN/FOL AC/IRON TABLET 1 TAB PO (10:32)
[2022-02-03] MEDS: DOCUSATE SODIUM 100 MG CAPSULE PO (10:35)
--- NOTE | 2022-02-03 15:01 | PC.NURSE ---
[id number] Mother led the conversation with her experience and plan to feed her so far and her ability to independently latch optimally without discomfort. Reminded parents to use good handwashing technique to prevent infection. Mother is feeding appropriately for growth of and understands stimulating to eat if needed. Infant has had appropriate feedings in the last 24 hours meets the outcomes for weight, output and jaundice at this time. Mother states she is confident to continue effectively her infant at home or when to call for assistance and denies any additional assistance or education at this time. Reinforced understanding of milk production, transition of milk, signs of adequate intake, prevention/relief of engorgement, responsive after visualizing feeding cues, the different methods of stimulating infant to breastfeed 2-3 hours after the start of the last feeding, community resources, medication information reviewed per [employer] and when to call a provider using the resource of the mom and baby guide/[facility] website. Mother voiced understanding of the education shared.
[2022-02-06 07:50] VITALS: BP 139/87; PULSE 99; RESP 20; TEMP 37.4; O2SAT 99
== END 2022-02-03 13:50 | disposition home or self-care (01) | DRG 560 ==
LOC: ANHLDR 01-31 07:57 → ANHOB2 02-01 15:43
PROVIDERS: Admitting Provider Obstetrics & Gynecology; PCP Family Medicine; Visit Provider Obstetrics & Gynecology
DX: O10.92 Unspecified pre-existing hypertension complicating childbirth (principal); O14.14 Severe pre-eclampsia complicating childbirth; O70.1 Second degree perineal laceration during delivery; O76 Abnormality in fetal heart rate and rhythm complicating labor and delivery; Z3A.37 37 weeks gestation of pregnancy; Z37.0 Single live birth; Z86.16 Personal history of COVID-19
CPT/HCPCS: 36415; 80053; 82570; 83735; 84156; 84550; 85014; 85018; 85025; 86592; 86850; 86900; 86901; 88307; A9270; J2370; J2405; J2590; J2795; J3475; J7120; J7121

== ENCOUNTER 2023-08-09 13:35 | Outpatient (CLI) | payer OTHER, SELFPAY | END 2023-08-09 13:36 | disposition home or self-care (01) | PROVIDERS: PCP Family Medicine; Visit Provider Obstetrics & Gynecology | DX: O20.0 Threatened abortion (principal) | CPT/HCPCS: 36415; 84702 ==

== ENCOUNTER 2023-08-31 12:27 | Outpatient (CLI) | payer OTHER, SELFPAY | END 2023-08-31 12:28 | disposition home or self-care (01) | PROVIDERS: PCP Family Medicine; Visit Provider Obstetrics & Gynecology | DX: O03.9 Complete or unspecified spontaneous abortion without complication (principal) | CPT/HCPCS: 36415; 84702 ==

== ENCOUNTER 2024-04-17 08:19 | Outpatient (RCR) | payer OTHER, SELFPAY ==
[2024-04-14] MEDS: ACETAMINOPHEN 325 MG TABLET 650 MG PO (09:18)
[2024-04-14] MEDS: diphenhydrAMINE HCl INJ 50 MG/ML VIAL 25 MG IV PUSH (09:19)
[2024-04-14] MEDS: IRON SUCROSE COMPLEX 200 MG in SODIUM CHLORIDE 0.9% IV 100 ML 100 MG IVPB (09:20)
[2024-04-14 09:29] VITALS: BP 120/68; PULSE 98; RESP 20; TEMP 36.6; O2SAT 99; BMI 24.0
--- NOTE | 2024-04-14 09:33 | PC.NURSE ---
Pt to room 202 amb at 0900. A&Ox3. Oriented to room. Up in chair. Has no complaints. VSS. Call sosa in reach. Infusion process explained. Pt has no questions. IV started without difficulty. Pre meds administered, IV infusion started as ordered. Pt reminded to call with needs or complaints.
[2024-04-14 09:49] VITALS: BP 110/64; PULSE 90; RESP 20; TEMP 36.3; O2SAT 100
--- NOTE | 2024-04-14 09:50 | PC.NURSE ---
Pt up in chair watching movie on her phone. IV infusing as ordered. VSS. Has no complaints. Call sosa in reach. Reminded to call with needs.
--- NOTE | 2024-04-14 10:27 | PC.NURSE ---
IV infused as ordered. Pt has no complaints or concerns. A&Ox3. Denies drowsiness. BP114/73, T97./, R20, P93, SaO2 99%. Pt discharged to home ambulatory.
[2024-04-17 08:40] VITALS: BP 136/75; PULSE 95; RESP 16; TEMP 36.3; O2SAT 99; BMI 24.0
--- NOTE | 2024-04-17 08:40 | PC.NURSE ---
patient here for venofer infusion. Tolerated IV start well. Vital signs stable. Patient given call light. Denies any questions at this time.
[2024-04-17] MEDS: diphenhydrAMINE HCl INJ 50 MG/ML VIAL 25 MG IV PUSH (08:52)
[2024-04-17] MEDS: ACETAMINOPHEN 325 MG TABLET 650 MG PO (08:52)
[2024-04-17] MEDS: IRON SUCROSE COMPLEX 200 MG in SODIUM CHLORIDE 0.9% IV 100 ML 100 MG IVPB (08:53)
--- NOTE | 2024-04-17 09:55 | PC.NURSE ---
Patient tolerated Iron infusion well. IV site discontinued, dressing applied. Patient denies any questions at time of discharge, left ambulatory. Will come sunday for next infusion.
== END 2024-07-13 23:59 | disposition home or self-care (01) ==
LOC: CHSTREATRM 08:19
PROVIDERS: PCP Family Medicine; Visit Provider Advanced Practice Midwife
DX: O99.019 Anemia complicating pregnancy, unspecified trimester (principal); D64.9 Anemia, unspecified; Z3A.00 Weeks of gestation of pregnancy not specified
CPT/HCPCS: 96365; A9270; J1200; J1756

== ENCOUNTER 2024-04-21 08:22 | Outpatient (CLI) | payer OTHER, SELFPAY ==
[2024-04-21 08:45] VITALS: BP 131/77; PULSE 90; RESP 16; TEMP 36.6; O2SAT 99; BMI 24.0
--- NOTE | 2024-04-21 08:45 | PC.NURSE ---
Patient here for IV venofer. Tolerated IV start well. Sitting up in recliner resting. Denies any needs. Waiting for medication to be ready. Call light in reach.
[2024-04-21] MEDS: ACETAMINOPHEN 325 MG TABLET 650 MG PO (08:58)
[2024-04-21] MEDS: diphenhydrAMINE HCl INJ 50 MG/ML VIAL 25 MG IV PUSH (08:58)
[2024-04-21] MEDS: IRON SUCROSE COMPLEX 200 MG in SODIUM CHLORIDE 0.9% IV 100 ML 100 MG IVPB (08:59)
--- NOTE | 2024-04-21 10:00 | PC.NURSE ---
Patient tolerated Venofer infusion well. IV site discontinued, dressing applied to site. Patient denies any questions at discharge. Left floor ambulatory.
== END 2024-04-21 10:00 | disposition home or self-care (01) ==
LOC: CHSTREATRM 08:26
PROVIDERS: PCP Family Medicine; Visit Provider Advanced Practice Midwife
DX: O99.019 Anemia complicating pregnancy, unspecified trimester (principal)
CPT/HCPCS: 96365; 96375; A9270; J1200; J1756

== ENCOUNTER 2024-04-24 08:25 | Outpatient (CLI) | payer OTHER, SELFPAY ==
[2024-04-24] MEDS: ACETAMINOPHEN 325 MG TABLET 650 MG PO (09:13)
[2024-04-24] MEDS: diphenhydrAMINE HCl INJ 50 MG/ML VIAL 25 MG IV PUSH (09:13)
[2024-04-24] MEDS: IRON SUCROSE COMPLEX 200 MG in SODIUM CHLORIDE 0.9% IV 100 ML 100 MG IVPB (09:14)
[2024-04-24 09:28] VITALS: BMI 24.0
[2024-04-24 09:31] VITALS: BP 134/78; PULSE 88; RESP 18; TEMP 37.2; O2SAT 98
== END 2024-04-24 08:26 | disposition home or self-care (01) ==
LOC: CHSTREATRM 08:29
PROVIDERS: PCP Family Medicine; Visit Provider Advanced Practice Midwife
DX: O99.019 Anemia complicating pregnancy, unspecified trimester (principal)
CPT/HCPCS: 96365; 96375; A9270; J1200; J1756

== ENCOUNTER 2024-04-29 07:51 | Outpatient (CLI) | payer OTHER, SELFPAY ==
[2024-04-29] MEDS: ACETAMINOPHEN 325 MG TABLET 650 MG PO (08:20)
[2024-04-29] MEDS: diphenhydrAMINE HCl INJ 50 MG/ML VIAL 25 MG IV PUSH (08:21)
[2024-04-29] MEDS: IRON SUCROSE COMPLEX 200 MG in SODIUM CHLORIDE 0.9% IV 100 ML 100 MG IVPB (08:22)
[2024-04-29 08:39] VITALS: BMI 24.0
[2024-04-29 08:41] VITALS: BP 122/68; PULSE 98; RESP 18; TEMP 36.1; O2SAT 98
== END 2024-04-29 09:30 | disposition home or self-care (01) ==
PROVIDERS: PCP Family Medicine; Visit Provider Advanced Practice Midwife
DX: O99.019 Anemia complicating pregnancy, unspecified trimester (principal)
CPT/HCPCS: 96365; 96375; A9270; J1200; J1756

== ENCOUNTER 2024-05-09 11:18 | Observation (INO) | payer OTHER, SELFPAY ==
--- NOTE | ~2024-05-09 | US_ITS ---
EXAMINATION: US OB BPP wo non-stress DATE: 05/09/2024 14:14 INDICATION: Nonreactive nonstress test in office evaluation during third trimester of TECHNIQUE: Real-time pelvic ultrasound was performed. The interpreting radiologist was not present fo r the study. COMPARISON: None. FINDINGS: There is a single living fetus in vertex presentation. The placenta is anterior and not low-lying. F etal heart rate is 152 beats per minute (bpm). Biophysical profile performed by the technologist: breathing (30 sec sustained breathing in 30 minutes): 2 out of 2 movement (3 gross body movements in 30 minutes): 2 out of 2 tone (one episode of exxjidr-vdmfticus-pgbbthx limb movement): 2 out of 2 Amniotic fluid pocket (2 cm): 2 out of 2 Total score: 8 out of 8 IMPRESSION: 1. Single living fetus in vertex presentation with heart rate of 152 bpm. 2. Biophysical profile 8 out of 8. Reviewed, dictated and finalized at location A.
[2024-05-09 11:30] VITALS: BMI 25.1
--- NOTE | 2024-05-09 11:40 | OBADM ---
This patient, Anali Carson, admitted to the OB room Labor/Delivery/Recovery 118 for observation. Patient/family oriented to hospital policies and general routines including ID bracelet, bed and alarms, visiting hours, pain management, procedures, bathroom and other care routines, personal items, smoking policy, room service/diet, and visiting hours. Patient/Family are encouraged to report perceived risks to care and to ask questions if they do not understand what they are told or what they should do.
[2024-05-09] MEDS: NIFEdipine 10 MG CAPSULE PO (12:34)
[2024-05-09] MEDS: TERBUTALINE SULFATE 1 MG/ML VIAL 0.25 MG SUB-Q (14:42)
--- NOTE | 2024-05-12 08:16 | PM.OBTRLD ---
OB - Triage/Final Diagnosis Visit Information Date of evaluation: 05/09/24 Reason for evaluation: decreased movement Comments/Additional reasons for admission: I have assessed the risk for this patient, Anali Carson, and determined that she would benefit from observation care.
== END 2024-05-09 15:34 | disposition home or self-care (01) ==
PROVIDERS: Admitting Provider Obstetrics & Gynecology; PCP Family Medicine; Visit Provider Obstetrics & Gynecology
DX: O36.8130 Decreased fetal movements, third trimester, not applicable or unspecified (principal); Z3A.33 33 weeks gestation of pregnancy
CPT/HCPCS: 76819; 96372; A9270; G0378; G0379; J3105

== ENCOUNTER 2024-05-15 10:07 | Outpatient (RCR) | payer OTHER, SELFPAY ==
[2024-05-14] MEDS: BETAMETHASONE SOD PHOS/ACETATE 30 MG/5 ML VIAL 12 MG IM (09:58)
[2024-05-15] MEDS: BETAMETHASONE SOD PHOS/ACETATE 30 MG/5 ML VIAL 12 MG IM (10:24)
== END 2024-08-12 23:59 | disposition home or self-care (01) ==
LOC: ANHOBOP 10:07
PROVIDERS: PCP Family Medicine; Visit Provider Advanced Practice Midwife
DX: O36.8990 Maternal care for other specified fetal problems, unspecified trimester, not applicable or unspecified (principal); Z3A.00 Weeks of gestation of pregnancy not specified
CPT/HCPCS: 96372; J0702

== ENCOUNTER 2024-05-23 11:13 | Outpatient (RCR) | payer OTHER, SELFPAY ==
--- NOTE | ~2024-05-23 | US_ITS ---
EXAMINATION: US OB BPP wo non-stress DATE: 05/02/2024 12:31 INDICATION: Hypertension during TECHNIQUE: Real-time pelvic ultrasound was performed. The interpreting radiologist was not present fo r the study. COMPARISON: None. FINDINGS: There is a single living fetus in vertex presentation. The placenta is anterior. heart rate is 145 beats per minute (bpm). Amniotic fluid volume is subjectively normal with normal deepest vertica l pocket measurement of 5.6 cm. Biophysical profile performed by the technologist: breathing (30 sec sustained breathing in 30 minutes): 2 out of 2 movement (3 gross body movements in 30 minutes): 2 out of 2 tone (one episode of mqxcxid-nitgqwzsk-wuxioey limb movement): 2 out of 2 Amniotic fluid pocket (2 cm): 2 out of 2 Total score: 8 out of 8 IMPRESSION: 1. Single living fetus in vertex presentation with heart rate of 145 bpm. 2. Biophysical profile 8 out of 8. Reviewed, dictated and finalized at location A.
[2024-05-23 11:38] LABS: Basophils Percent Auto 0.3 % (0.2-1.2); Eosinophils Absolute Auto 0.1 K/mm3 (0-0.3); Eosinophils Percent Auto 0.9 % (0-4.4); Hematocrit 32.3 % (37.0-47.0); Hemoglobin 10.5 g/dL (12.0-15.0); Immature Granulocyte Absolute 0.08 K/mm3 (0.00-0.031); Immature Granulocyte Percent A 0.9 % (0-0.5); Lymphocytes Absolute Auto 1.56 K/mm3 (0.9-3.2); Lymphocytes Percent Auto 17.7 % (18.3-44.2); Mean Corpuscular HGB Conc 32.5 g/dl (32-36); Mean Corpuscular Hemoglobin 29.4 pg (26-34); Mean Corpuscular Volume 90.5 fl (80-100); Mean Platelet Volume 10.9 fl (7.4-10.4); Monocytes Absolute Auto 0.6 K/mm3 (0.1-0.6); Neutrophils Absolute Auto 6.5 K/mm3 (1.3-6.7); Neutrophils Percent Auto 73.2 % (45.5-73.1); Platelet Count Result 159 k/mm3 (150-375); Red Blood Count 3.57 M/mm3 (4.2-5.4); Red Cell Distribution Width 22.6 % (11.5-14.5); White Blood Count 8.8 K/mm3 (4.5-10.0)
[2024-05-23 11:52] LABS: Alanine Aminotransferase 19 U/L (6-35); Albumin Level 3.7 g/dL (3.5-5.1); Alkaline Phosphatase 89 U/L (38-126); Anion Gap 7 mmol/L (4-12); Aspartate Amino Transferase 25 U/L (14-36); Bilirubin,Total 0.5 mg/dL (0.2-1.3); Blood Urea Nitrogen 8 mg/dL (7-17); Calcium 9.2 mg/dL (8.4-10.2); Carbon Dioxide 25 mmol/L (22-30); Chloride 104 mmol/L (98-107); Estimated Glomerular Filt Rate > 60; Glucose 87 mg/dL (65-110); Potassium 3.2 mmol/L (3.4-5.0); Sodium 136 mmol/L (137-145); Uric Acid 3.5 mg/dL (2.5-7.5)
[2024-05-23 11:57] VITALS: BP 138/79; PULSE 93
[2024-05-23 12:17] LABS: Ovalocytes 1+; Platelet Estimate Adequate (Adequate); Schistocytes None Seen
[2024-05-23 12:18] LABS: Anisocytosis 1+
== END 2024-07-31 23:59 | disposition home or self-care (01) ==
LOC: ANHOBOP 11:13
PROVIDERS: PCP Family Medicine; Visit Provider Advanced Practice Midwife
DX: O13.9 Gestational [pregnancy-induced] hypertension without significant proteinuria, unspecified trimester (principal)
CPT/HCPCS: 36415; 59025; 76819; 80053; 84550; 85025

== ENCOUNTER 2024-06-06 06:14 | Inpatient (IN) | payer OTHER, SELFPAY ==
[2024-06-06] VITALS (106 sets, daily range): BP systolic 94–163; BP diastolic 62–104; PULSE 78–132; RESP 16; TEMP 37.2–37.7; O2SAT 99–100; BMI 26.1
--- NOTE | 2024-06-06 06:14 | LDADM ---
This patient, Anali Carson, was admitted to Labor/Delivery/Recovery 108 on 06/06/24 at 06:13. Plans for labor, pain management and were discussed with patient. Patient/family oriented to hospital policies and general routines including ID bracelet, bed and alarms, visiting hours, pain management, procedures, bathroom and other care routines, personal items, smoking policy, room service/diet and guest tray routines, security routines, and visiting hours. Patient/Family are encouraged to report perceived risks to care and to ask questions if they do not understand what they are told or what they should do. See OBIX for further documentation.
[2024-06-06 06:55] LABS: Basophils Percent Auto 0.3 % (0.2-1.2); Eosinophils Absolute Auto 0.1 K/mm3 (0-0.3); Eosinophils Percent Auto 1.2 % (0-4.4); Hematocrit 34.7 % (37.0-47.0); Hemoglobin 11.5 g/dL (12.0-15.0); Immature Granulocyte Absolute 0.03 K/mm3 (0.00-0.031); Immature Granulocyte Percent A 0.5 % (0-0.5); Lymphocytes Percent Auto 22.3 % (18.3-44.2); Mean Corpuscular HGB Conc 33.1 g/dl (32-36); Mean Corpuscular Hemoglobin 29.8 pg (26-34); Mean Corpuscular Volume 89.9 fl (80-100); Mean Platelet Volume 10.3 fl (7.4-10.4); Monocytes Absolute Auto 0.5 K/mm3 (0.1-0.6); Monocytes Percent Auto 9.3 % (2.6-8.5); Neutrophils Absolute Auto 3.9 K/mm3 (1.3-6.7); Neutrophils Percent Auto 66.4 % (45.5-73.1); Platelet Count Result 146 k/mm3 (150-375); Red Blood Count 3.86 M/mm3 (4.2-5.4); Red Cell Distribution Width 20.7 % (11.5-14.5); White Blood Count 5.8 K/mm3 (4.5-10.0)
[2024-06-06 07:11] LABS: Alanine Aminotransferase 15 U/L (6-35); Albumin Level 3.9 g/dL (3.5-5.1); Alkaline Phosphatase 119 U/L (38-126); Anion Gap 10 mmol/L (4-12); Aspartate Amino Transferase 22 U/L (14-36); Bilirubin,Total 0.4 mg/dL (0.2-1.3); Blood Urea Nitrogen 4 mg/dL (7-17); Calcium 8.6 mg/dL (8.4-10.2); Carbon Dioxide 22 mmol/L (22-30); Chloride 104 mmol/L (98-107); Estimated CRCL calculation 123 ml/min; Estimated Glomerular Filt Rate > 60; Glucose 93 mg/dL (65-110); Potassium 3.1 mmol/L (3.4-5.0); Sodium 136 mmol/L (137-145)
[2024-06-06 07:28] LABS: Uric Acid 3.7 mg/dL (2.5-7.5)
[2024-06-06] MEDS: miSOPROStol 25 MCG TABLET 50 MCG BUCCAL (07:30)
--- NOTE | 2024-06-06 07:32 | WPDOBADMIT ---
Obstetrics - Admit Note Admission Note: record reviewed. No pertinent additions to the history and/or any subsequent changes in the physical findings that are not consistent with the expected course of the were found. Additions to the history and/or subsequent changes in the physical findings follow. Admit for IOL for GHTN, anticipate vaginal delivery
[2024-06-06] MEDS: POTASSIUM CHLORIDE 20 MEQ ER TABLET 40 MEQ PO (08:08)
[2024-06-06 08:11] LABS: HIV 1/2 Ab P24 Ag Result Negative (Negative)
[2024-06-06 08:56] LABS: Rapid Plasma Reagin Non-Reactive (NonReactive)
--- NOTE | 2024-06-06 12:21 | PM.OBPNLAB ---
Pain Control Date/time seen: 06/06/24 12:21 Comments: SVE /-2 AROM clear fluid
[2024-06-06] MEDS: LACTATED RINGERS 1,000 ML 125 ML IV CONT ×2 (13:08→14:10)
[2024-06-06] MEDS: OXYTOCIN 30 UNITS/NS 500 ML 30 UNITS/500 ML BAG IV CONT (16:43)
--- NOTE | 2024-06-06 20:20 | PM.OBPRVD ---
OB - Vaginal Delivery Note Procedure Delivery date: 06/06/24 Events: Gestational Hypertension Induction method: AROM, Per Misoprostol Protocol and Per Pitocin Protocol Delivery monitor: External FHT and Internal Uterine Route of delivery: Episiotomy description: None Laceration Description: Perineal - 1st Degree Delivery repair: vicryl Specimen: No Quantitative Blood Loss (ml): 50 Anesthesia type: Epidural Disposition: Floor Complications: No immediate complications Baby Date of : 06/06/24 Time of : 20:07 Gestational Age by Date: 37 Infant gender: Male Weight (pounds): 6 Weight (ounces): 14 presentation: vertex position: Left Occiput Anterior Placenta delivery description: Spontaneous Cord Vessel Description: 3 Vessels and Around Body (x1) score one minute: 8 score five minutes: 9
[2024-06-06] MEDS: OXYTOCIN 30 UNITS/NS 500 ML 30 UNITS/500 ML BAG 125 UNITS IV CONT (20:39)
[2024-06-06] MEDS: IBUPROFEN 600 MG TABLET PO (22:42)
[2024-06-06] MEDS: ACETAMINOPHEN 325 MG TABLET 650 MG PO (22:42)
[2024-06-07] VITALS (7 sets, daily range): BP systolic 126–148; BP diastolic 69–92; PULSE 72–100; RESP 16–20; TEMP 36.5–36.9; O2SAT 97–100
[2024-06-07] MEDS: ACETAMINOPHEN 325 MG TABLET 650 MG PO ×3 (04:25→17:33)
[2024-06-07] MEDS: IBUPROFEN 600 MG TABLET PO ×2 (04:25→17:33)
[2024-06-07 05:57] LABS: Hematocrit 35.2 % (37.0-47.0); Hemoglobin 11.4 g/dL (12.0-15.0)
[2024-06-07] MEDS: DOCUSATE SODIUM 100 MG CAPSULE PO ×2 (08:10→17:33)
[2024-06-07] MEDS: MULTIVIT/MIN/PREN/FOL AC/IRON TABLET 1 TAB PO (08:10)
--- NOTE | 2024-06-07 08:45 | PC.NURSE ---
Introductions were made, then consulted with patient to assess needs related to . Discussed with mother her?plans to feed?her and the?experience so far. She breastfed her first baby successfully and this time she is sore on the right nipple (she said this happened with the first baby also). She says she will call out when she feeds again for assistance with latching and positioning. Resources provided for inpatient and outpatient services with the feeding sheet, educational handouts, mom/baby guide and name/number written on the communication board. Mother voiced understanding of information and will call if there is a request for assistance. Reported to the Primary RN.
--- NOTE | 2024-06-07 09:21 | PM.OBPNVD ---
OB - PN: Subj Subjective Date/time seen: 06/07/24 09:21 Interval history: pp day 1 doing well OB - PN: Obj Data Labs 06/07/24 05:00 06/06/24 06:30 Labs: Laboratory Results - last 24 hr 06/07/24 05:00 Hgb 11.4 L Hct 35.2 L OB - PN A/P Plan day: 1 Plan: routine care Time Spent With Patient Time: Total time spent is greater than 50% in coordination of care (as documented) at patient's floor/unit and/or counseling patient: Review of Systems Review of Systems: All systems reviewed & are unremarkable except as noted in HPI and below Exam Const: General: cooperative and healthy appearing Chest: Chest palpation & inspection: normal inspection of the chest Resp: Effort & Inspection: normal respiratory effort Skin: General skin exam: normal color Neuro: General: patient oriented x3
--- NOTE | 2024-06-07 11:30 | PC.NURSE ---
Went to patient room to observe a latch. Mother was feeding on the left breast which is the 'easier' side. Baby was latched but sleepy. Mom repositioned him and he woke and latched well again. We did pull his bottom lip out. He nursed for a short time, his 'squeaking' inspirations were noted while he was feeding (electric spot welder and primary RN aware). He became sleepy again and mom says that after his initial big mouth latch on he gets sleepy and slips to just the nipple. Encouraged her to continue working with him while he is sleepy to get a few good minutes of feeding in. Swallowing was noted and mom says she also hears frequent swallows. Will work on a deep latch on the right side at the next feeding. Mom agrees to call for assistance. Reported to primary RN.
--- NOTE | 2024-06-07 18:53 | PC.NURSE ---
06/07/2024 at 1840. This patient was tranferred in a wheelchair, baby in his crib, and mother's significant other to a new room on the first floor 111. Patient oriented to room, surroundings, and plan of care for her and baby. Questions answered and state understanding. Assessments done and found WNL. Baby remains in mother's room for bonding and nursing.
--- NOTE | 2024-06-08 01:38 | PC.NURSE ---
06/08/2024 at 0200. Daylight Savings Time For Daylight Savings Time Ending in the Fall - Clocks are moved back. For [facility], the time of change occurs at 0200 hrs. Time is taken from the seismic observer. This entry on the patient's chart recognizes the change in time reflected during documentation. Example: 2 entries for vital signs may be charted for 0200 hrs.
[2024-06-08 03:50] VITALS: BP 128/87; PULSE 86; RESP 16; TEMP 36.7
[2024-06-08] MEDS: ACETAMINOPHEN 325 MG TABLET 650 MG PO (03:59)
[2024-06-08] MEDS: IBUPROFEN 600 MG TABLET PO (04:00)
[2024-06-08 07:30] VITALS: BP 138/93; PULSE 91; RESP 16; TEMP 36.6; O2SAT 99
[2024-06-08] MEDS: MULTIVIT/MIN/PREN/FOL AC/IRON TABLET 1 TAB PO (08:42)
[2024-06-08] MEDS: DOCUSATE SODIUM 100 MG CAPSULE PO (08:42)
--- NOTE | 2024-06-08 09:28 | PM.OBPNVD ---
OB - PN: Subj Subjective Date/time seen: 06/08/24 09:28 Interval history: pp day 2 doing well discharge home OB - PN: Obj Data Labs 06/07/24 05:00 06/06/24 06:30 OB - PN A/P Plan day: 2 Plan: routine care and discharge home Time Spent With Patient Time: Total time spent is greater than 50% in coordination of care (as documented) at patient's floor/unit and/or counseling patient: Review of Systems Review of Systems: All systems reviewed & are unremarkable except as noted in HPI and below Exam Const: General: cooperative and healthy appearing Chest: Chest palpation & inspection: normal inspection of the chest Resp: Effort & Inspection: normal respiratory effort Cardio: Rate: regular rate Skin: General skin exam: normal color Neuro: General: patient oriented x3
--- NOTE | 2024-06-08 09:31 | P.DS_ITS ---
DS: Admitting Diagnosis Discharge Date 06/08/24 Admitting Diagnosis IOL, GHTN DS: Discharge Diagnosis Discharge Diagnosis (1) Vaginal discharge: Code(s): N89.8 - Other specified noninflammatory disorders of vagina Status: Acute OB - DS: Summary OB Procedures : None OB Procedures Intrapartum: Spontaneous Vag Delivery OB Procedures: : None Peripartum Data Laceration Description: Perineal - 1st Degree Episiotomy description: None Time Spent with Patient Time attestation: Total time spent providing and/or coordinating discharge services: Discharge Plan Discharge Attending physician on discharge: Watson Felipe Consulting providers: Padmini Smyth Discharging Clinician: Padmini Smyth Patient Disposition: Home, Self-Care Activity: pelvic rest Diet: regular Patient Instructions: Antibiotic Form Stand Alone Forms: General Discharge Information Follow-up/Referrals: Padmini Smyth, CNM [Certified Nurse Air Conditioning Installer] - 4 Weeks Discharge Medications: New ibuprofen 600 mg Tablet 600 mg PO Q6H PRN (Reason: Cramping) Qty: 30 0RF Continued 28-800 mg-mcg Tablet 1 tablet PO DAILY ferrous sulfate 200 mg (40 mg iron) Tablet 200 mg PO DAILY Discontinued aspirin 81 mg Tablet,Delayed Release (Dr/Ec) 81 mg DAILY calcium citrate malate-vit B6 1 tab-cap PO DAILY polysaccharide iron complex 150 mg iron capsule 150 mg PO DAILY docusate sodium [Colace] 100 mg Capsule 100 mg PO DAILY Date of admission: 06/06/24 06:14 Primary Care Provider: Duke Tellez Admitting Provider: Watson Felipe Attending physician on admission: Watson Felipe Condition: Stable
[2024-06-09 10:01] VITALS: BP 158/100; PULSE 78; RESP 18; TEMP 37.1; O2SAT 100
== END 2024-06-08 12:15 | disposition home or self-care (01) | DRG 560 ==
LOC: ANHLDR 08:50 → ANHOB2 22:25 → ANHOBPP 06-07 19:01
PROVIDERS: Advanced Practice Midwife; Admitting Provider Obstetrics & Gynecology; PCP Family Medicine; Visit Provider Obstetrics & Gynecology
DX: O13.4 Gestational [pregnancy-induced] hypertension without significant proteinuria, complicating childbirth (principal); O70.0 First degree perineal laceration during delivery; O69.82X0 Labor and delivery complicated by other cord entanglement, without compression, not applicable or unspecified; Z3A.37 37 weeks gestation of pregnancy; Z37.0 Single live birth
CPT/HCPCS: 36415; 80053; 84550; 85014; 85018; 85025; 86592; 86703; 86850; 86900; 86901; A9270; G0432; J2590; J2795; J7120

== ENCOUNTER 2024-06-09 09:53 | Outpatient (CLI) | payer OTHER, SELFPAY ==
[2024-06-09 10:28] VITALS: BP 147/91; PULSE 90
[2024-06-09 10:30] VITALS: PULSE 90
[2024-06-09] MEDS: LABETALOL HCL 100 MG TABLET 200 MG PO (10:30)
[2024-06-09 10:31] VITALS: BP 147/91; PULSE 90
[2024-06-09 10:42] LABS: Alanine Aminotransferase 31 U/L (6-35); Albumin Level 3.7 g/dL (3.5-5.1); Alkaline Phosphatase 86 U/L (38-126); Anion Gap 11 mmol/L (4-12); Aspartate Amino Transferase 44 U/L (14-36); Bilirubin,Total 0.4 mg/dL (0.2-1.3); Blood Urea Nitrogen 9 mg/dL (7-17); Calcium 8.7 mg/dL (8.4-10.2); Carbon Dioxide 25 mmol/L (22-30); Chloride 103 mmol/L (98-107); Estimated Glomerular Filt Rate > 60; Glucose 85 mg/dL (65-110); Potassium 2.9 mmol/L (3.4-5.0); Sodium 139 mmol/L (137-145); Uric Acid 4.6 mg/dL (2.5-7.5)
[2024-06-09 10:46] VITALS: BP 148/87; PULSE 83
[2024-06-09 10:49] LABS: Basophils Percent Auto 0.2 % (0.2-1.2); Eosinophils Absolute Auto 0.4 K/mm3 (0-0.3); Eosinophils Percent Auto 3.8 % (0-4.4); Hemoglobin 10.4 g/dL (12.0-15.0); Immature Granulocyte Absolute 0.06 K/mm3 (0.00-0.031); Immature Granulocyte Percent A 0.6 % (0-0.5); Lymphocytes Absolute Auto 1.52 K/mm3 (0.9-3.2); Lymphocytes Percent Auto 15.3 % (18.3-44.2); Mean Corpuscular HGB Conc 33.5 g/dl (32-36); Mean Corpuscular Hemoglobin 30.3 pg (26-34); Mean Corpuscular Volume 90.4 fl (80-100); Mean Platelet Volume 9.9 fl (7.4-10.4); Monocytes Absolute Auto 0.5 K/mm3 (0.1-0.6); Neutrophils Absolute Auto 7.5 K/mm3 (1.3-6.7); Neutrophils Percent Auto 75.1 % (45.5-73.1); Platelet Count Result 176 k/mm3 (150-375); Red Blood Count 3.43 M/mm3 (4.2-5.4); White Blood Count 9.9 K/mm3 (4.5-10.0)
[2024-06-09 11:01] VITALS: BP 141/86; PULSE 85
[2024-06-09] MEDS: POTASSIUM CHLORIDE 20 MEQ ER TABLET PO (11:15)
== END 2024-06-09 11:21 | disposition home or self-care (01) ==
LOC: ANHOBOP 10:09 → ANHOBPP 10:10
PROVIDERS: PCP Family Medicine; Visit Provider Advanced Practice Midwife
DX: O16.5 Unspecified maternal hypertension, complicating the puerperium (principal)
CPT/HCPCS: 36415; 80053; 84550; 85025; A9270

== ENCOUNTER 2024-06-17 15:13 | Outpatient (CLI) | payer OTHER, SELFPAY ==
[2024-06-17] VITALS (8 sets, daily range): BP systolic 155–172; BP diastolic 94–100; PULSE 61–71
[2024-06-17 16:10] LABS: Basophils Percent Auto 0.4 % (0.2-1.2); Eosinophils Absolute Auto 0.3 K/mm3 (0-0.3); Eosinophils Percent Auto 2.8 % (0-4.4); Hematocrit 40.8 % (37.0-47.0); Hemoglobin 13.7 g/dL (12.0-15.0); Immature Granulocyte Absolute 0.03 K/mm3 (0.00-0.031); Immature Granulocyte Percent A 0.3 % (0-0.5); Lymphocytes Absolute Auto 2.19 K/mm3 (0.9-3.2); Lymphocytes Percent Auto 24.1 % (18.3-44.2); Mean Corpuscular HGB Conc 33.6 g/dl (32-36); Mean Corpuscular Hemoglobin 30.5 pg (26-34); Mean Corpuscular Volume 90.9 fl (80-100); Mean Platelet Volume 9.4 fl (7.4-10.4); Monocytes Absolute Auto 0.4 K/mm3 (0.1-0.6); Monocytes Percent Auto 4.9 % (2.6-8.5); Neutrophils Absolute Auto 6.1 K/mm3 (1.3-6.7); Neutrophils Percent Auto 67.5 % (45.5-73.1); Platelet Count Result 336 k/mm3 (150-375); Red Blood Count 4.49 M/mm3 (4.2-5.4); Red Cell Distribution Width 17.7 % (11.5-14.5); White Blood Count 9.1 K/mm3 (4.5-10.0)
[2024-06-17 16:20] LABS: Alanine Aminotransferase 25 U/L (6-35); Albumin Level 4.6 g/dL (3.5-5.1); Alkaline Phosphatase 88 U/L (38-126); Anion Gap 11 mmol/L (4-12); Aspartate Amino Transferase 23 U/L (14-36); Bilirubin,Total 0.5 mg/dL (0.2-1.3); Blood Urea Nitrogen 17 mg/dL (7-17); Calcium 9.6 mg/dL (8.4-10.2); Carbon Dioxide 27 mmol/L (22-30); Chloride 102 mmol/L (98-107); Estimated Glomerular Filt Rate > 60; Glucose 91 mg/dL (65-110); Potassium 4.3 mmol/L (3.4-5.0); Sodium 140 mmol/L (137-145); Uric Acid 5.5 mg/dL (2.5-7.5)
--- NOTE | 2024-06-17 16:39 | PC.NURSE ---
1994--Reported BP's and pt condition to Dr. Siu. Procardia ordered for now x 1 dose and to take at home. Pt to follow up in office in one week.
[2024-06-17] MEDS: NIFEdipine 30 MG TAB.ER.24 PO (16:47)
--- NOTE | 2024-06-17 18:27 | PC.NURSE ---
1814--Dr. Siu on unit. Reported latest BP's-DC orders given. Will send Rx to Pharmacy and have nurse from office contact patient on 07/18.
== END 2024-06-17 18:25 | disposition home or self-care (01) ==
LOC: ANHOBOP 15:17 → ANHLDR 15:23
PROVIDERS: PCP Family Medicine; Visit Provider Advanced Practice Midwife
DX: O13.9 Gestational [pregnancy-induced] hypertension without significant proteinuria, unspecified trimester (principal); Z3A.00 Weeks of gestation of pregnancy not specified
CPT/HCPCS: 36415; 80053; 84550; 85025; A9270